=== PATIENT | female | born 1995 | race Caucasian/White ===

== ENCOUNTER 2016-11-04 09:46 | Emergency (ER) | payer MEDICAID ==
[~2016-11-04] VITALS: Ht 162.6 cm; Wt 101.0 kg
[2016-11-04 09:51] VITALS: BP 120/81
== END 2016-11-04 11:12 | disposition home or self-care (01) ==
LOC: ED 10:31
DX: H66.002 Acute suppurative otitis media without spontaneous rupture of ear drum, left ear (principal); J03.90 Acute tonsillitis, unspecified
CPT/HCPCS: 99283

== ENCOUNTER 2016-12-03 17:29 | Emergency (ER) | payer MEDICAID ==
[~2016-12-03] VITALS: Ht 162.6 cm; Wt 101.6 kg
[2016-12-03 17:54] LABS: HEMATOCRIT 40.3 % (34.6-47.8); HEMOGLOBIN 13.5 g/dL (11.7-16.4); WHITE BLOOD COUNT 6.9 x10^3/uL (4.5-13.2)
[2016-12-03 18:08] LABS: BLOOD UREA NITROGEN 11 mg/dL (7-18)
[2016-12-03 19:51] VITALS: BP 119/67
== END 2016-12-03 19:54 | disposition home or self-care (01) ==
LOC: ED 19:50
DX: R10.2 Pelvic and perineal pain (principal)
CPT/HCPCS: 36415; 76830; 80048; 81003; 82040; 84703; 85025; 99285

== ENCOUNTER 2017-04-19 11:29 | Emergency (ER) | payer MEDICAID ==
[~2017-04-19] VITALS: Ht 162.6 cm; Wt 104.6 kg
[2017-04-19] MEDS ORDERED: SODIUM CHLORIDE 0.9% 1,000 ML IV ONE (12:13)
[2017-04-19] MEDS ORDERED: FAMOTIDINE 20 MG/2 ML ONE (12:16)
[2017-04-19] MEDS ORDERED: ONDANSETRON 2MG/ML, 2ML ONE (12:16)
[2017-04-19] MEDS ORDERED: ACETAMINOPHEN 500 MG TABLET ONE (12:16)
[2017-04-19 12:30] LABS: BASOPHILS # (AUTO) 0.01 x10^3/uL (0-0.3); BASOPHILS % (AUTO) 0 % (0-1); EOSINOPHILS % (AUTO) 0 % (1-7); LYMPHOCYTES # (AUTO) 0.28 x10^3/uL (1-6.1); LYMPHOCYTES % (AUTO) 6 % (22-44); MD NO; MEAN CORPUSCULAR HGB CONC 33.8 g/dL (32.4-35.8); MEAN CORPUSCULAR VOLUME 85.9 fL (80-100); MEAN PLATELET VOLUME 8.6 fL (7.4-10.4); MONOCYTES % (AUTO) 9 % (2-9); NEUTROPHILS # (AUTO) 3.87 x10^3/uL (1.8-8.0); NEUTROPHILS % (AUTO) 85 % (42-75); PLATELET COUNT 141 x10^3/uL (130-400); RED BLOOD COUNT 4.62 x10^6/uL (3.82-5.3); RED CELL DISTRIBUTION WIDTH 13.4 % (9.6-15.2)
[2017-04-19] MEDS ORDERED: ACETAMINOPHEN 325 MG TABLET PO ONE (12:30)
[2017-04-19] MEDS ORDERED: SODIUM CHLORIDE 0.9% 1,000ML IVBOLUS ONE (12:30)
[2017-04-19 12:43] LABS: ALANINE AMINOTRANSFERASE 22 U/L (12-78); ALBUMIN 3.1 g/dL (3.4-5.0); ANION GAP 9 mmol/L (5-15); CALCIUM 8.5 mg/dL (8.5-10.1); CHLORIDE 109 mmol/L (98-107); CREATININE 0.44 mg/dL (0.55-1.02)
[2017-04-19 12:45] LABS: ALKALINE PHOSPHATASE 52 U/L (45-117); BILIRUBIN,TOTAL 0.2 mg/dL (0.2-1.0); TOTAL PROTEIN 6.8 g/dL (6.4-8.2)
[2017-04-19] MEDS ORDERED: ACETAMINOPHEN 325 MG TABLET ONE (12:55)
[2017-04-19] MEDS ORDERED: ONDANSETRON 2MG/ML, 2ML IVPush ONE (13:00)
[2017-04-19] MEDS ORDERED: FAMOTIDINE 20 MG/2 ML IVP ONE (13:00)
[2017-04-19 13:03] LABS: CULTURE INDICATED? YES; MICROSCOPIC INDICATED
[2017-04-19 13:04] LABS: RAPID INFLUENZA A Negative (Negative); RAPID INFLUENZA B POSITIVE (Negative)
[2017-04-19 13:49] VITALS: BP 117/46
== END 2017-04-19 13:52 | disposition home or self-care (01) ==
LOC: ED 13:20
DX: O99.512 Diseases of the respiratory system complicating pregnancy, second trimester (principal); O99.212 Obesity complicating pregnancy, second trimester; O21.9 Vomiting of pregnancy, unspecified; R82.99 Other abnormal findings in urine; Z3A.16 16 weeks gestation of pregnancy
CPT/HCPCS: 36415; 71046; 80053; 81001; 85025; 87086; 87400; 96361; 96374; 96375; 99285; J2405; J7030; S0028

== ENCOUNTER 2018-07-17 22:39 | Emergency (ER) | payer MEDICAID ==
[~2018-07-17] VITALS: Ht 157.5 cm; Wt 121.3 kg
--- NOTE | 2018-07-17 22:51 | NUR ---
assessment made. chart up for MD to see.
[2018-07-17] MEDS ORDERED: DEXAMETHASONE 4 MG TABLET ONE (23:07)
[2018-07-17] MEDS ORDERED: DEXAMETHASONE 4 MG TABLET PO ONE (23:30)
--- NOTE | 2018-07-18 00:23 | NUR ---
patient discharged with prescription and instruction. verbalized understanding.
[2018-07-18 00:24] VITALS: BP 128/78
== END 2018-07-18 00:26 | disposition home or self-care (01) ==
LOC: ED 23:55
DX: J02.0 Streptococcal pharyngitis (principal)
CPT/HCPCS: 87880; 99283